=== PATIENT | male | born 1930 | race African-American/Black ===

== ENCOUNTER 2016-11-10 01:17 | Emergency (ER) | payer MEDICARE, MEDICAID ==
[~2016-11-10] VITALS: Ht 170.2 cm; Wt 59.0 kg
[2016-11-10 01:25] VITALS: BP 110/66
[2016-11-10] MEDS ORDERED: Milk of Magnesia 30ml Ud ONE (01:59)
--- NOTE | 2016-11-10 02:07 | Emergency Room Report ---
History of Present Illness General Chief Complaint: Malfunctioning Gastric Tube Source: Medical Record, EMS Present Illness HPI An 85-year-old bedbound shelter patient. He has a G-tube that he pulled out tonight. A Avilez was placed. Patient was sent here for G-tube replacement. No other complaint. No other history from patient. Allergies: Coded Allergies: No Known Allergies (Unverified , 09/20/15) Patient History Past Medical History: see triage record, old chart reviewed Past Surgical History: other Pertinent Family History: none Social History: Denies: smoking Immunizations: UTD Reviewed Nursing Documentation: PMH: Agreed, PSxH: Agreed Nursing Documentation-PMH Hx Hypertension: Yes Hx Neurological Problems: Yes - dysphagia, muscle weakness Review of Systems Eye: Denies: blurred vision, eye pain ENT: Denies: ear pain, nose congestion, throat swelling Respiratory: Denies: cough, shortness of breath Cardiovascular: Denies: chest pain, palpitations Gastrointestinal: Denies: abdominal pain, diarrhea, nausea, vomiting Musculoskeletal: Denies: back pain, joint pain Skin: Denies: rash Neurological: Denies: headache, numbness Endocrine: Denies: increased thirst, increased urine Hematologic/Lymphatic: Denies: easy bruising All Other Systems: negative except mentioned in HPI Physical Exam Vital Signs Date Time Temp Pulse Resp B/P Pulse Ox O2 Delivery O2 Flow Rate FiO2 11/10/16 01:16 98.2 59 16 110/66 96 Room Air vitals normal Sp02 EP Interpretation: reviewed, normal General Appearance: well appearing, no apparent distress, alert Head: normocephalic, atraumatic Eyes: bilateral eye EOMI, bilateral eye PERRL ENT: hearing grossly normal, normal pharynx Neck: full range of motion, supple, no meningismus Respiratory: chest non-tender, lungs clear, normal breath sounds Cardiovascular #1: regular rate, rhythm, no murmur Gastrointestinal: normal bowel sounds, non tender, no mass, no organomegaly, no bruit, non-distended Musculoskeletal: back normal, normal range of motion Neurologic: alert Psychiatric: mood/affect normal Skin: warm/dry Procedures Additional Procedure Procedure Narrative Procedure: G-tube placement. Indication: G-tube malfunction. Description: I deflated the balloon removed the Avilez. Replaced it with a 20 Maltese G-tube. Balloon was inflated. Patient tolerated procedure without a problem. X-rays done to confirm placement. Medical Decision Making Diagnostic Impression: Primary Impression: Dislodged gastrostomy tube ER Course Here for G-tube placement. No extravasation. No other location. Other X-Ray Diagnostic Results Other X-Ray Diagnostic Results : X-Ray Ordered: Abdominal x-ray Date: Nov 10, 2016 Time: 02:07 EP Interpretation: Yes Findings: no fractures, no dislocation, no soft tissue swelling, other - G- tube in good position. No extravasation. Number of Views: 1 Last Vital Signs Date Time Temp Pulse Resp B/P Pulse Ox O2 Delivery O2 Flow Rate FiO2 11/10/16 01:25 98.2 82 16 110/66 96 Room Air Status: improved Disposition: HOME, SELF-CARE Condition: Stable Referrals: NON PHYSICIAN (PCP) Patient Instructions: Gastrostomy Tube Home Guide, Adult Additional Instructions: Followup your doctor as needed. Return if worse. HOA NELSON M.D. Nov 10, 2016 02:07
[2016-11-10 02:20] VITALS: BP 110/66
--- NOTE | 2016-11-10 09:27 | Diagnostic Imaging Report ---
Clinical history: Check G-tube placement Technique: Single frontal abdominal radiograph was obtained following administration of water-soluble contrast through the existing gastrostomy tube. Comparisons: None Findings: The gastrostomy tube is partially obscured by overlying contrast. There is no evidence of extraluminal extravasation. Contrast is seen in the stomach and proximal bowel loops. Visualized bowel gas pattern is nonspecific and nonobstructive. Impression: Appropriate position of gastrostomy tube as described.
== END 2016-11-10 02:23 | disposition home or self-care (01) ==
LOC: EDBD 01:17 → EMR 01:30
DX: Z43.1 Encounter for attention to gastrostomy (principal); I10 Essential (primary) hypertension; Z74.01 Bed confinement status; R13.10 Dysphagia, unspecified
CPT/HCPCS: 43760; 74000

== ENCOUNTER 2016-11-16 22:46 | Emergency (ER) | payer MEDICARE, MEDICAID ==
[~2016-11-16] VITALS: Ht 154.9 cm; Wt 52.2 kg
[~2016-11-16 22:46] MED LIST: D5 1/2NS 1,000 ML IV SCH
[2016-11-16 22:59] VITALS: BP 105/61
[2016-11-16] MEDS ORDERED: Nitroglycerin Subl 0.4mg tab (Bottle Of 25) SL PRN (23:30)
[2016-11-16] MEDS ORDERED: Mylanta II UD 30ml ORAL PRN (23:30)
[2016-11-16] MEDS ORDERED: Morphine Sulfate 2mg/ml Inj IVP PRN (23:30)
[2016-11-16] MEDS ORDERED: Miralax 17gm pkt ORAL PRN (23:30)
[2016-11-17 00:59] VITALS: BP 118/66
[2016-11-17 01:19] VITALS: BP 118/66
--- NOTE | 2016-11-17 02:52 | Emergency Room Report ---
History of Present Illness General Chief Complaint: Malfunctioning Gastric Tube Source: EMS Present Illness HPI 86-year-old male presents to ED for evaluation. Per EMS patient is here for G- tube placement. G-tube came out at detention [facility]. Nursing placed a Avilez catheter. Upon arrival patient showing no signs of distress. Patient has dementia and is unable to provide any additional history at this time. No reported fevers or chills. No reported nausea or vomiting. No other aggravating relieving factors. No other associated symptoms Allergies: Coded Allergies: No Known Allergies (Unverified , 09/20/15) Patient History Past Medical History: none Past Surgical History: other - gtube Pertinent Family History: none Social History: Denies: alcohol use, drug use, smoking Immunizations: UTD Reviewed Nursing Documentation: PMH: Agreed, PSxH: Agreed Nursing Documentation-PMH Past Medical History: No History, Except For Hx Hypertension: Yes Hx Neurological Problems: Yes - dysphagia, muscle weakness Review of Systems All Other Systems: negative except mentioned in HPI Physical Exam Vital Signs Date Time Temp Pulse Resp B/P Pulse Ox O2 Delivery O2 Flow Rate FiO2 11/16/16 22:46 98.1 62 16 105/61 97 11/17/16 00:59 Room Air Sp02 EP Interpretation: reviewed, normal General Appearance: no apparent distress, non-toxic, other - dementia Head: normocephalic Eyes: bilateral eye PERRL, bilateral eye normal inspection ENT: normal ENT inspection Neck: normal inspection Respiratory: chest non-tender, lungs clear, normal breath sounds, speaking full sentences Cardiovascular #1: regular rate, rhythm, no edema Gastrointestinal: other - gtube site C/D/I Rectal: deferred Genitourinary: no CVA tenderness Musculoskeletal: normal inspection Neurologic: other - dementia Psychiatric: other - dementia Skin: normal inspection Lymphatic: normal inspection Procedures Additional Procedure Procedure Narrative G-tube placement Patient placed on stretcher. Old G-tube is removed by deflating the balloon using syringe. G-tube site is inspected with no contraindications to G-tube placement. G-tube slowly inserted until resistance is met; G-tube balloon is slowly filled with 20 mL of normal saline and slowly retracted back until resistance is met. G-tube placement is confirmed with KUB study using Gastrografin Medical Decision Making Diagnostic Impression: Primary Impression: Malfunction of gastrostomy tube ER Course Hospital Course 86-year-old male presents to ED for G-tube placement. Pulled out G-tube at detention Clinical course Patient placed on stretcher. After initial history and physical I replaced G- tube and inflate the balloon. G-tube placement confirmed with KUB study. Patient remained stable without any signs of distress. [facility] called and patient subsequently discharged back to facility. Diagnosis - malfunction of G tube stable and discharged back to facility. Followup with PMD. Return to ED if symptoms recur or worsen Other X-Ray Diagnostic Results Other X-Ray Diagnostic Results : X-Ray Ordered: KUB EP Interpretation: Yes Findings: no fractures, no dislocation, no soft tissue swelling, other - Gtube in place. no extravasation Number of Views: 1 Last Vital Signs Date Time Temp Pulse Resp B/P Pulse Ox O2 Delivery O2 Flow Rate FiO2 11/17/16 01:19 97.9 70 17 118/66 98 Room Air Status: improved Disposition: XFER SNF Condition: Stable Referrals: NON PHYSICIAN (PCP) Patient Instructions: Gastrostomy Tube Home Guide, Adult BAO ESPINAL M.D. Nov 17, 2016 02:52
[2016-11-17] MEDS ORDERED: Heparin 5000 units/ml inj SUBQ SCH (09:00)
--- NOTE | 2016-11-17 09:57 | Diagnostic Imaging Report ---
Clinical history: Evaluate gastric tube positioning. Technique: Single frontal abdominal radiograph was obtained following administration of 60 cc Gastrografin through the existing gastrostomy tube. Comparisons: Abdomen radiograph dated 11/10/16. Findings: The balloon retention gastrostomy tube is noted in the left upper abdomen. There is no evidence of extraluminal extravasation. Contrast is seen in the stomach and proximal bowel loops. Visualized bowel gas pattern is nonspecific and nonobstructive. Impression: Appropriate position of gastrostomy tube as described.
== END 2016-11-17 01:25 ==
LOC: EDBD 22:46 → EMR 23:05
DX: Z43.1 Encounter for attention to gastrostomy (principal); I10 Essential (primary) hypertension; R13.10 Dysphagia, unspecified; F03.90 Unspecified dementia, unspecified severity, without behavioral disturbance, psychotic disturbance, mood disturbance, and anxiety
CPT/HCPCS: 43760; 74000

== ENCOUNTER 2016-12-19 03:14 | Emergency (ER) | payer MEDICARE, MEDICAID ==
[~2016-12-19] VITALS: Ht 172.7 cm; Wt 72.6 kg
[2016-12-19 03:16] VITALS: BP 103/57
[2016-12-19 05:00] VITALS: BP 110/62
--- NOTE | 2016-12-19 07:42 | Emergency Room Report ---
History of Present Illness General Chief Complaint: Malfunctioning Gastric Tube Source: Patient, EMS Present Illness HPI Patient was sent from longterm after G-tube was accidentally removed. The patient was sent in for G-tube replacement. There was no drainage from the G- tube. Patient had not been vomiting. There was no fever. Allergies: Coded Allergies: No Known Allergies (Unverified , 09/20/15) Patient History Past Medical History: see triage record Reviewed Nursing Documentation: PMH: Agreed, PSxH: Agreed Nursing Documentation-PMH Hx Hypertension: Yes Hx Gastrointestinal Problems: Yes - G TUBE History Of Psychiatric Problem: Yes - SCHIZO,DEMENTIA Hx Neurological Problems: Yes - dysphagia, muscle weakness Hx Cerebrovascular Accident: Yes Review of Systems All Other Systems: negative except mentioned in HPI Physical Exam Vital Signs Date Time Temp Pulse Resp B/P Pulse Ox O2 Delivery O2 Flow Rate FiO2 12/19/16 03:10 98.4 70 16 103/57 96 Room Air General Appearance: mild distress, Chronically Ill ENT: normal pharynx Neck: full range of motion, supple Respiratory: chest non-tender, lungs clear Cardiovascular #1: regular rate, rhythm, no edema Gastrointestinal: other - stoma patient with costa Neurologic: alert, responsive, toolmaker grade three III-XII nml as tested, motor weakness Skin: normal inspection Medical Decision Making Diagnostic Impression: Primary Impression: Malfunction of gastrostomy tube ER Course Patient presented for G-tube replacement. Gastrostomy tube was replaced with sterile technique. Post procedure x-ray showed adequate gastrostomy tube placement. Patient tolerated well without complications. The patient was discharged back to longterm. Patient was return for persistent vomiting, other concerns. Last Vital Signs Date Time Temp Pulse Resp B/P Pulse Ox O2 Delivery O2 Flow Rate FiO2 12/19/16 05:00 98.4 74 16 110/62 98 Room Air Status: improved Disposition: [facility] Condition: Stable Referrals: NON PHYSICIAN (PCP) Patient Instructions: Gastrostomy Tube Home Guide, Adult Levar Chew Dec 19, 2016 07:42
--- NOTE | 2016-12-19 11:41 | Diagnostic Imaging Report ---
Indication: NG tube check Comparison: None Single view of the abdomen obtained Gastrostomy is in the upper part of the stomach. There is contrast in the stomach and duodenum. No leak identified. Impression: Gastrostomy in good position
== END 2016-12-19 05:00 ==
LOC: EDBD 03:14 → EMR 03:27
DX: K94.23 Gastrostomy malfunction (principal); Y83.3 Surgical operation with formation of external stoma as the cause of abnormal reaction of the patient, or of later complication, without mention of misadventure at the time of the procedure; I10 Essential (primary) hypertension; F20.9 Schizophrenia, unspecified; F03.90 Unspecified dementia, unspecified severity, without behavioral disturbance, psychotic disturbance, mood disturbance, and anxiety; Z86.73 Personal history of transient ischemic attack (TIA), and cerebral infarction without residual deficits
CPT/HCPCS: 74000

== ENCOUNTER 2016-12-31 22:16 | Emergency (ER) | payer MEDICARE, MEDICAID ==
[~2016-12-31] VITALS: Ht 157.5 cm; Wt 54.4 kg
[2016-12-31 23:07] VITALS: BP 115/61
[2017-01-01 01:11] VITALS: BP 114/65
[2017-01-01 02:11] VITALS: BP 143/77
[2017-01-01 02:13] VITALS: BP 143/77
--- NOTE | 2017-01-01 06:22 | Emergency Room Report ---
History of Present Illness General Chief Complaint: Malfunctioning Gastric Tube Source: Patient Present Illness HPI [facility]. The patient was sent in for G-tube replacement. There was no drainage from the G- tube. Patient had not been vomiting. There was no fever. Allergies: Coded Allergies: No Known Allergies (Unverified , 09/20/15) Patient History Past Medical History: see triage record Reviewed Nursing Documentation: PMH: Agreed, PSxH: Agreed Nursing Documentation-PMH Hx Hypertension: Yes Hx Gastrointestinal Problems: Yes - G TUBE Hx Neurological Problems: Yes - dysphagia, muscle weakness Hx Cerebrovascular Accident: Yes Review of Systems All Other Systems: limited - by mental status Physical Exam Vital Signs Date Time Temp Pulse Resp B/P Pulse Ox O2 Delivery O2 Flow Rate FiO2 12/31/16 22:28 98.1 68 18 106/64 96 Room Air Sp02 EP Interpretation: normal General Appearance: non-toxic, Chronically Ill ENT: normal pharynx Neck: limited range of motion Respiratory: lungs clear, normal breath sounds Gastrointestinal: non tender, soft, other - stoma patent Neurologic: alert, motor weakness Skin: normal inspection Medical Decision Making Diagnostic Impression: Primary Impression: PEG (percutaneous endoscopic gastrostomy) adjustment/replaceme... ER Course Patient presented for G-tube replacement. Gastrostomy tube 16 [place] was replaced with sterile technique. Post procedure x-ray showed adequate gastrostomy tube placement. Patient tolerated well without complications. The [facility] Patient was return for persistent vomiting, other concerns. Last Vital Signs Date Time Temp Pulse Resp B/P Pulse Ox O2 Delivery O2 Flow Rate FiO2 01/01/17 02:13 98.1 71 24 143/77 97 Room Air Status: improved Disposition: HOME, SELF-CARE Condition: Stable Referrals: NON PHYSICIAN (PCP) Patient Instructions: Gastrostomy Tube Home Guide, Adult Levar Chew Jan 01, 2017 06:22
--- NOTE | 2017-01-01 14:26 | Diagnostic Imaging Report ---
Indication: Status post gastrostomy replacement Technique: Supine view of the abdomen after injection of water-soluble contrast into gastrostomy Comparison: 12/19/2016 Findings: Contrast opacifies the stomach. No contrast extravasation is demonstrated. The bowel gas pattern is unremarkable. No significant change Impression: Satisfactory position of gastrostomy tube This agrees with the preliminary interpretation provided by the emergency room physician
== END 2017-01-01 02:15 ==
LOC: EDBD 22:16 → EMR 22:45
DX: K94.23 Gastrostomy malfunction (principal); I10 Essential (primary) hypertension; Z86.73 Personal history of transient ischemic attack (TIA), and cerebral infarction without residual deficits
CPT/HCPCS: 43760; 74000; 99283; Q9963